=== PATIENT | female | born 1950 | race Caucasian/White ===

== ENCOUNTER 2019-07-28 14:21 | Emergency (ER) | payer BC ==
[2019-07-28 14:55] LABS: BILIRUBIN,URINE NEGATIVE (NEGATIVE); GLUCOSE, URINE (UA) NEGATIVE (NEGATIVE); KETONES,URINE (UA) NEGATIVE (NEGATIVE); LEUKOCYTE ESTERASE, URINE NEGATIVE (NEGATIVE); NITRITE,URINE NEGATIVE (NEGATIVE); OCCULT BLOOD,URINE NEGATIVE (NEGATIVE); PROTEIN,URINE NEGATIVE (NEGATIVE); UROBILINOGEN,URINE 0.2 (NORMAL) E.U./dL (NORMAL)
[2019-07-28 15:20] LABS: CLARITY,URINE CLEAR (CLEAR)
--- NOTE | 2019-07-28 16:07 | ED Physician Documentation ---
PD HPI FEMALE - Stated complaint Stated Complaint: FEMALE - Chief complaint Chief Complaint: Abd Pain - History obtained from History obtained from: Patient (68-year-old woman with history of lichen sclerosis is visiting locally. She started to have some dysuria about a week ago but since then has developed much more significant vaginal swelling and redness with mild discharge.) Review of Systems Constitutional: denies: Fever, Chills Cardiac: denies: Chest pain / pressure, Palpitations Respiratory: denies: Dyspnea, Cough GI: denies: Abdominal Pain, Nausea, Vomiting PD PAST MEDICAL HISTORY - Allergies Allergies/Adverse Reactions: Allergies Allergy/AdvReac Type Severity Reaction Status Date / Time acetaminophen [From Percocet] Allergy Hallucinati Verified 07/28/19 14:28 ons diclofenac Allergy Anaphylaxis Verified 07/28/19 14:28 erythromycin base Allergy Nausea Verified 07/28/19 14:28 hydrocodone [From Vicodin] Allergy Emesis Verified 07/28/19 14:28 oxycodone [From Percocet] Allergy Hallucinati Verified 07/28/19 14:28 ons PD ED PE NORMAL - Vitals Vital signs reviewed: Yes - General General: Alert and oriented X 3, No acute distress - Abdomen Abdomen: Normal bowel sounds, Soft, Non tender - Female Female : Other (Vaginal exam done with Jaqueline NANCE present and chaperoning, moderate white curdy discharge, mildly inflamed labia.) - Neuro Neuro: Alert and oriented X 3, Normal speech Results - Vitals Vitals: Vital Signs - 24 hr 07/28/19 14:29 Temperature 36.9 C Heart Rate 70 Respiratory 16 Rate Blood Pressure 148/76 H O2 Saturation 99 Oxygen O2 Source Room air - Labs Labs: Microbiology 07/28/19 16:26 Wet Prep - Final Genital - Vaginal Laboratory Tests 07/28/19 14:50 Urine Color YELLOW Urine Clarity CLEAR Urine pH 6.0 Ur Specific Spivey 1.020 Urine Protein NEGATIVE Urine Glucose (UA) NEGATIVE Urine Ketones NEGATIVE Urine Occult Blood NEGATIVE Urine Nitrite NEGATIVE Urine Bilirubin NEGATIVE Urine Urobilinogen 0.2 (NORMAL) Ur Leukocyte Esterase NEGATIVE Ur Microscopic Review NOT INDICATED Urine Culture Comments NOT INDICATED Departure - Departure Disposition: 01 Home, Self Care Clinical Impression: Vaginitis Qualifiers: Chronicity: acute Qualified Code(s): N76.0 - Acute vaginitis Condition: Good Record reviewed to determine appropriate education?: Yes Instructions: ED Vaginal Infec Fungal Kelly Comments: The exam is most consistent with yeast, although the initial swab was negative. We are running a PCR test for pathogens. If positive for an alternate agent, wel will call probably jessy. We are giving you diflucan here to cover yeast.
[2019-07-28] MEDS ORDERED: FLUCONAZOLE 100 MG TABLET PO STA (16:54)
[2019-07-28 17:03] VITALS: BP 140/70
[2019-07-28 19:07] LABS: CANDIDA GROUP DNA POSITIVE (NEGATIVE); CANDIDA KRUSEI DNA NEGATIVE (NEGATIVE); TRICHOMONAS VAGINALIS DNA NEGATIVE (NEGATIVE)
== END 2019-07-28 17:03 | disposition home or self-care (01) ==
LOC: ED 14:21
DX: N76.0 Acute vaginitis (principal)
CPT/HCPCS: 81003; 87210; 87481; 87661; 87801; 99283; A9270; 81001; 87086